=== PATIENT | male | born 2000 | race Caucasian/White ===

== ENCOUNTER 2025-03-05 19:46 | Emergency (ER) | payer BC, SELFPAY ==
[2025-03-05 19:50] VITALS: BP 145/72
[2025-03-05 20:45] VITALS: BMI 22.2
--- NOTE | 2025-03-05 21:50 | ED.GENMED ---
History of Present Illness
General
Chief Complaint: Musculo-Skeletal Complaint
Source: patient
Exam Limitations: none
Time Seen by Provider: 03/05/25 21:23
Nursing documentation reviewed up to this point in time: agreed with
History of Present Illness
History of Present Illness:
24 y/o M
with no sig pmh
L foot dorsum pain while playing basketball 5 days ago
doesn't know what happened, thinks someone stepped onthe top of his L foot
has been having some pain since, worse with weight bearing/steps but can walk
no ankle pain
no significant swelling
no numbness
taking motrin once aday
Past History
Past History
ED Past Medical History: None
ED Past Surgical History: None
Social History
Tobacco: Non-smoker
Alcohol: None
Drug: None
Review of Systems
Review of Systems
Allergies reviewed?: Yes
All Other Systems: Not applicable
Phy Exam
Physical Exam
Physical Exam:
GENERAL: Alert , in no apparent distress, comfortable at rest
HEAD: NCAT
CV: 2+ DP PULSES B/L
NEUROLOGICAL: Alert and oriented, no focal neuro deficits, , 5/5 strength, sensation intact, ambulation slight limp right leg
SKIN: Warm and dry, very faint erythema/pink to top of foot L along prox 1st metatarsal region
MUSCULOSKELETAL:bony prominence proximal metatarsal of both feet, mildly tender on L only
mimmial skin pinkness
no bruising
weight bearing
ankle nomrla
PSYCH: Normal and appropriate interaction.
Course
Orders/Labs/Results
Orders:
Orders
03/05/25 19:52
CR Foot - Left Min 3 Views Urgent
Comment:
Reason For Exam: pain
Vital Signs
Initial and Last Documented VS:
Initial Vital Signs
Temp Pulse Resp BP Pulse Ox
36.7 C 94 16 145/72 100
03/05/25 19:50 03/05/25 19:50 03/05/25 19:50 03/05/25 19:50 03/05/25 19:50
Last Documented Vital Signs
Temp Pulse Resp BP Pulse Ox
36.7 C 94 16 145/72 100
03/05/25 19:50 03/05/25 19:50 03/05/25 19:50 03/05/25 19:50 03/05/25 19:50
MDM/Problems Addressed
Differential Diagnosis Includes:
foot contusion, foot sprain, foot fracture
MDM/Problems Addressed:
24 y/o M
L foot pain while playing basketball
thimnks someone stepped on him while playing
able to walk
stairs are more painful
no deformity
ankle nontender
xrays indep reviewed, neb
small bony prominence on the 1st metatarsal which he has bilaterally but it is mildly tender L side
probably bruising
barber wrap, dc home
*Critical Care Note
Total Time (30-74mins, 75-104mins- exclusive of procedures): Not Applicable
ED Attending Note
-
Portions of this chart may have been created with voice recognition software.� Occasional wrong word or��sound alike� substitutions may have occurred due to the inherent limitations of voice recognition software.
Discharge Plan
Departure
Patient Disposition: Home (Routine Discharge)
Date of Disposition: 03/05/25
Time of Disposition: 21:52
Patient with high blood pressure during this ER visit?: No
Condition: Fair
Covid-19: Not Applicable
Discharge Problem:
Contusion of foot, left
Instructions: Contusion (DC)
Prescriptions:
No Action
amoxicillin 500 MG capsule
500 mg PO BID Qty: 14 0RF
methylprednisolone 4 MG tablet
4 mg PO TAPER Qty: 1 0RF
Referrals:
Jameel Parada MD [Family Provider] - Follow up in 2-3 days
José Rowan DPM [Active] - Follow up in 5-7 days (podiatry)
Activity Restrictions/Additional Instructions:
Your x-rays were negative. You probably have a bruise to the top of your foot. Try icing off-and-on, taking ibuprofen 600 mg, that is 3 tablets 3 times a day with food for 3 to 5 days. If you are still having pain then you should see an
orthopedist. return for any concern
Interventions
Interventions:
*Risk Screen - Suicide Last Done: 03/05/25 19:50
*General Assessment Last Done: 03/05/25 20:45
*Neglect/Abuse Screening Last Done: 03/05/25 19:50
*ED- Fall Risk Assessment Last Done: 03/05/25 20:45
*ED COVID-19 Vaccine History Last Done: 03/05/25 20:45
*Nursing Disposition Last Done: 03/05/25 22:05
ED-Musculoskeletal Assessment Last Done: 03/05/25 20:47
Discharge Date and Time
Discharge Date/Time: 03/05/25 22:06
Print Language: CYMRO
== END 2025-03-05 22:06 | disposition home or self-care (01) ==
LOC: EMR 19:46
PROVIDERS: EMERGENCY PHYSICIAN Emergency Medicine; FAMILY PHYSICIAN Family Medicine
DX: S90.32XA Contusion of left foot, initial encounter (principal); W50.0XXA Accidental hit or strike by another person, initial encounter
CPT/HCPCS: 99283; 73630